=== PATIENT | male | born 1950 | race Caucasian/White ===

== ENCOUNTER → 2016-11-03 | Outpatient (CLI) | payer MEDICARE, OTHER ==
[2016-11-03 17:32] LABS: HEMOGLOBIN 15.8 gm/dl (14.0-17.5); RED BLOOD COUNT 5.21 M/UL (4.20-5.50)
[2016-11-03 17:39] LABS: BUN/CREATININE RATIO 17 (0-10)
== END ==
LOC: LAB 16:41 → EDBD 16:41
PROVIDERS: Internal Medicine Interventional Cardiology
DX: Z45.010 Encounter for checking and testing of cardiac pacemaker pulse generator [battery] (principal); I48.91 Unspecified atrial fibrillation; Z88.8 Allergy status to other drugs, medicaments and biological substances
CPT/HCPCS: 36415; 80048; 85025; 85610; 85730

== ENCOUNTER 2020-03-11 11:09 | Observation (INO) | payer MEDICARE, OTHER ==
[~2020-03-11] VITALS: Ht 175.3 cm; Wt 84.8 kg
[~2020-03-11 11:09] MED LIST: ALPRAZOLAM0.5 MG PO; AMIODARONE HCL200 MG PO; COZAAR 25MG TAB25 MG PO; GLUCOTROL XL 5 M5 MG PO; IBUPROFEN400 MG PO; LEVEMIR100 UNIT/1 SC
[2020-03-11 11:47] LABS: HEMOGLOBIN 17.4 gm/dl (14.0-17.5); RED BLOOD COUNT 5.66 M/UL (4.20-5.50); WHITE BLOOD COUNT 9.4 K/UL (4.5-11.0)
[2020-03-11 12:17] LABS: BUN/CREATININE RATIO 16 (0-10)
[2020-03-11] MEDS ORDERED: KLONOPIN TAB 00.5 MG PO (20:20)
[2020-03-11] MEDS ORDERED: MELOXICAM7.5 MG PO (20:21)
[2020-03-11] MEDS ORDERED: FLOMAX 0.4 MG0.4 MG PO (20:21)
[2020-03-11] MEDS ORDERED: GLUCOTROL 10 MG10 MG PO (20:21)
[2020-03-11] MEDS ORDERED: LOPRESSOR 25 MG25 MG PO (20:22)
[2020-03-11] MEDS ORDERED: ISOSORBIDE MONO30 MG PO (20:22)
[2020-03-12 03:12] LABS: HEMOGLOBIN 16.6 gm/dl (14.0-17.5); RED BLOOD COUNT 5.43 M/UL (4.20-5.50); WHITE BLOOD COUNT 9.8 K/UL (4.5-11.0)
[2020-03-12 04:00] LABS: BUN/CREATININE RATIO 23 (0-10)
[2020-03-12] MEDS ORDERED: IMDUR ER TAB 6060 MG PO (16:06)
[2020-03-12] MEDS ORDERED: ASPIRIN EC81 MG PO (16:06)
== END 2020-03-12 18:31 | disposition home or self-care (01) ==
LOC: ER1 11:09 → M/S 13:17 → CDU 13:17 → M/S 19:11
PROVIDERS: Family Medicine; Physician Assistant Medical; ADMIT Internal Medicine
DX: I10 Essential (primary) hypertension (principal); E78.5 Hyperlipidemia, unspecified; I49.5 Sick sinus syndrome; E11.9 Type 2 diabetes mellitus without complications; I25.2 Old myocardial infarction; F41.9 Anxiety disorder, unspecified; N40.0 Benign prostatic hyperplasia without lower urinary tract symptoms; D69.6 Thrombocytopenia, unspecified; K21.9 Gastro-esophageal reflux disease without esophagitis; Z95.0 Presence of cardiac pacemaker; Z88.5 Allergy status to narcotic agent; Z88.8 Allergy status to other drugs, medicaments and biological substances; Z79.4 Long term (current) use of insulin; Z79.1 Long term (current) use of non-steroidal anti-inflammatories (NSAID); Z79.899 Other long term (current) drug therapy; Z20.822 Contact with and (suspected) exposure to COVID-19
CPT/HCPCS: ECHO; 36415; 71045; 80048; 80053; 80061; 82550; 82553; 82962; 83036; 83735; 83874; 84484; 85025; 85027; 85610; 93005; 93306; 96372; 96374; 99285; G0378; J7030; U0002

== ENCOUNTER → 2020-12-11 | Outpatient (CLI) | payer MEDICARE, OTHER ==
[~2020-12-11] MED LIST changes: +ASPIRIN EC81 MG PO; +FLOMAX 0.4 MG0.4 MG PO; +GLUCOTROL 10 MG10 MG PO; +IMDUR ER TAB 6060 MG PO; +ISOSORBIDE MONO30 MG PO; +KLONOPIN TAB 00.5 MG PO; +LOPRESSOR 25 MG25 MG PO; +MELOXICAM7.5 MG PO
== END ==
LOC: HEART 5 08:51
DX: Z51.81 Encounter for therapeutic drug level monitoring (principal); Z79.899 Other long term (current) drug therapy
CPT/HCPCS: 94010; 94729

== ENCOUNTER → 2021-10-07 | Outpatient (CLI) | payer MEDICARE, OTHER | LOC: EXRD 14:09 | DX: G45.8 Other transient cerebral ischemic attacks and related syndromes (principal); R42 Dizziness and giddiness | CPT/HCPCS: 93931 ==